=== PATIENT | female | born 1955 | race Caucasian/White ===

== ENCOUNTER 2024-04-19 06:55 | Day surgery (SDC) | payer BC, MEDICARE ==
[2024-04-19] MEDS ORDERED: Ondansetron 4 MG/2 ML SDV IVPUSH ONE (06:56)
[2024-04-19] MEDS ORDERED: Propofol 200 MG/20 ML SDV IV ONE (06:56)
[2024-04-19] MEDS ORDERED: fentaNYL 100 MCG/2 ML SDV IV ONE (06:56)
[2024-04-19] MEDS ORDERED: Sodium Chloride 0.9% 10 ML Syringe FLUSH PRN (07:00)
[2024-04-19 07:49] VITALS: BP 135/57; PULSE 76
[2024-04-19] MEDS: Lactated Ringers 1,000 ML IV SCH (08:07)
[2024-04-19] MEDS: Simethicone Drops 40 MG/0.6 ML 30 ML Bottle ONE (08:23)
== END 2024-04-19 09:30 | disposition home or self-care (01) ==
LOC: FB.SDS 06:55
PROVIDERS: ATTEND Surgery
DX: D12.6 Benign neoplasm of colon, unspecified (principal); K62.5 Hemorrhage of anus and rectum; I10 Essential (primary) hypertension; E78.5 Hyperlipidemia, unspecified; G47.33 Obstructive sleep apnea (adult) (pediatric); E11.9 Type 2 diabetes mellitus without complications; E66.01 Morbid (severe) obesity due to excess calories; Z80.0 Family history of malignant neoplasm of digestive organs; Z79.899 Other long term (current) drug therapy; Z79.84 Long term (current) use of oral hypoglycemic drugs; Z88.0 Allergy status to penicillin; Z88.8 Allergy status to other drugs, medicaments and biological substances; Z91.09 Other allergy status, other than to drugs and biological substances; Z68.41 Body mass index [BMI] 40.0-44.9, adult
CPT/HCPCS: 00811; 88305; A9270-GY; J2405; J2704; J3010; J7120

== ENCOUNTER 2025-05-19 12:39 | Inpatient (IN) | payer MEDICARE ==
[2025-05-19] MEDS ORDERED: Ketoconazole 2% Crm 30 GM Tube TOP PRN (17:18)
[2025-05-19] MEDS ORDERED: Carboxymethylcellulose Sodium 0.5% Ophth Soln 15 ML Bottle EYEBOTH PRN (17:58)
[2025-05-19] MEDS: Sennosides/Docusate Sodium 50-8.6 MG Tab PO SCH (20:10)
[2025-05-20] MEDS: buPROPion 150 MG Tab.ER PO SCH (08:58)
[2025-05-20] MEDS ORDERED: METFORMIN 750 MG PO SCH (09:00)
[2025-05-24] MEDS: Ondansetron 4 MG Tab.DIS PO PRN (21:44)
[2025-05-25 06:04] VITALS: BP 173/71; PULSE 85
[2025-05-25 09:32] LABS: MEAN PLATELET VOLUME 8.2 fL (7.1-12.4); PLATELET COUNT,PLT 320 x10(3)uL (151-488); RED BLOOD CELL COUNT 4.21 x10(6)uL (3.60-5.20); RED CELL DISTRIBUTION WIDTH 14.3 % (12.3-16.5); WHITE BLOOD CELL COUNT,WBC 20.0 x10-3/uL (3.0-10.3)
[2025-05-25 09:35] LABS: BLOOD UREA NITROGEN,BUN 9 mg/dL (7-18); CARBON DIOXIDE,CO2 27 mmol/L (21-32); CHLORIDE,CL 98 mmol/L (100-110); CREATININE 0.9 mg/dL (0.55-1.02); EST CRCL DRUG DOSING (CG) 55.75 mL/min; ESTIMATED GFR 68 mL/min (>60); GLUCOSE RANDOM 219 mg/dL (80-116); POTASSIUM,K 3.6 mmol/L (3.5-5.3); SODIUM,NA 135 mmol/L (135-145)
[2025-05-25 09:40] LABS: LYMPHOCYTES PERCENT MAN 2 % (13-37); MONOCYTES PERCENT MAN 3 % (4-12); SEG NEUTROPHILS PERCENT MAN 95 % (46-82)
[2025-05-25 09:41] LABS: A/G RATIO 0.7; ALANINE AMINOTRANSFERASE,ALT 27 U/L (12-36); ASPARTATE AMNIOTRANSFERASE,AST 21 IU/L (5-25); BILIRUBIN TOTAL 1.7 mg/dL (0.1-1.3); PROTEIN TOTAL,TP 6.7 g/dL (6.0-8.0)
== END 2025-05-25 11:00 | disposition home or self-care (01) | DRG 948 ==
LOC: FB.MS 14:58
PROVIDERS: ADMIT Internal Medicine; ATTEND Family Medicine
DX: R53.81 Other malaise (principal); Z68.42 Body mass index [BMI] 45.0-49.9, adult; F32.9 Major depressive disorder, single episode, unspecified; E11.9 Type 2 diabetes mellitus without complications; K59.00 Constipation, unspecified; Z96.651 Presence of right artificial knee joint; I10 Essential (primary) hypertension; H26.9 Unspecified cataract; H54.7 Unspecified visual loss; E78.00 Pure hypercholesterolemia, unspecified; G47.00 Insomnia, unspecified; G47.33 Obstructive sleep apnea (adult) (pediatric); F41.1 Generalized anxiety disorder; E66.813 Obesity, class 3; K21.9 Gastro-esophageal reflux disease without esophagitis; M19.90 Unspecified osteoarthritis, unspecified site; F32.A Depression, unspecified; G25.81 Restless legs syndrome; Z90.89 Acquired absence of other organs; Z98.890 Other specified postprocedural states; Z79.899 Other long term (current) drug therapy; Z88.8 Allergy status to other drugs, medicaments and biological substances; Z88.1 Allergy status to other antibiotic agents; Z88.0 Allergy status to penicillin; Z91.048 Other nonmedicinal substance allergy status; Z79.891 Long term (current) use of opiate analgesic; Z79.84 Long term (current) use of oral hypoglycemic drugs; Z79.01 Long term (current) use of anticoagulants; Z79.1 Long term (current) use of non-steroidal anti-inflammatories (NSAID); Z98.49 Cataract extraction status, unspecified eye; Z90.710 Acquired absence of both cervix and uterus
CPT/HCPCS: 36415; 80053; 82947; 85025; 97110-GP; 97116-GP; 97161-GP; 97165-GO; 97530-GO; 97530-GP; 97535-GO; 99305; 99316; A9270-GY; Q0162

== ENCOUNTER 2025-05-28 10:48 | Emergency (ER) | payer MEDICARE ==
[2025-05-28 11:26] LABS: MEAN PLATELET VOLUME 8.2 fL (7.1-12.4); PLATELET COUNT,PLT 304 x10(3)uL (151-488); RED BLOOD CELL COUNT 4.23 x10(6)uL (3.60-5.20); RED CELL DISTRIBUTION WIDTH 14.7 % (12.3-16.5); WHITE BLOOD CELL COUNT,WBC 11.6 x10-3/uL (3.0-10.3)
[2025-05-28 11:32] LABS: BLOOD UREA NITROGEN,BUN 9 mg/dL (7-18); CARBON DIOXIDE,CO2 28 mmol/L (21-32); CHLORIDE,CL 97 mmol/L (100-110); CREATININE 1.2 mg/dL (0.55-1.02); ESTIMATED GFR 48 mL/min (>60); GLUCOSE RANDOM 207 mg/dL (80-116); POTASSIUM,K 3.4 mmol/L (3.5-5.3); SODIUM,NA 136 mmol/L (135-145)
[2025-05-28 11:34] LABS: INR 1.03 (1.00-1.24)
[2025-05-28 11:36] LABS: LYMPHOCYTES PERCENT MAN 3 % (13-37); MONOCYTES PERCENT MAN 4 % (4-12); PTT,PARTIAL THROMBOPLSTIN TIME 29.8 SECONDS (24.4-33.2); SEG NEUTROPHILS PERCENT MAN 93 % (46-82)
[2025-05-28 11:38] LABS: A/G RATIO 0.5; ALANINE AMINOTRANSFERASE,ALT 80 U/L (12-36); ASPARTATE AMNIOTRANSFERASE,AST 119 IU/L (5-25); BILIRUBIN TOTAL 2.8 mg/dL (0.1-1.3); PROTEIN TOTAL,TP 7.1 g/dL (6.0-8.0)
[2025-05-28] MEDS: Iopamidol 755 Mg/ML 100 ML Bottle IV SCH (13:22)
[2025-05-28 14:50] LABS: GLUCOSE,URINE NORMAL (NORMAL); OCCULT BLOOD,URINE LARGE (NEGATIVE)
[2025-05-28 14:52] LABS: APPEARANCE,URINE CLOUDY (CLEAR)
[2025-05-28 15:01] LABS: SQUAMOUS EPITHELIAL CELLS,UR FEW (NS,R,O)
[2025-05-28] MEDS: metroNIDAZOLE/Normal Saline 500 MG in Premix Bag 1 BAG IV ONE (15:32)
[2025-05-28 15:42] VITALS: BP 112/55; PULSE 108
== END 2025-05-28 16:12 | disposition home or self-care (01) ==
LOC: FB.ED 10:48
DX: S00.83XA Contusion of other part of head, initial encounter (principal); M25.561 Pain in right knee; K81.9 Cholecystitis, unspecified; I10 Essential (primary) hypertension; E78.00 Pure hypercholesterolemia, unspecified; K21.9 Gastro-esophageal reflux disease without esophagitis; E11.9 Type 2 diabetes mellitus without complications; E66.9 Obesity, unspecified; Z90.710 Acquired absence of both cervix and uterus; Z79.899 Other long term (current) drug therapy; Z79.01 Long term (current) use of anticoagulants; Z79.84 Long term (current) use of oral hypoglycemic drugs; Z88.0 Allergy status to penicillin; Z88.1 Allergy status to other antibiotic agents; Z88.8 Allergy status to other drugs, medicaments and biological substances; Z88.6 Allergy status to analgesic agent; Z91.048 Other nonmedicinal substance allergy status; W01.0XXA Fall on same level from slipping, tripping and stumbling without subsequent striking against object, initial encounter; Y92.009 Unspecified place in unspecified non-institutional (private) residence as the place of occurrence of the external cause
CPT/HCPCS: 36415; 70450; 72125; 74177; 80053; 80143; 81001; 83690; 84484; 85025; 85610; 85730; 93005; 96361; 96365; 96375; 99284; A9270; J0696; J7030; Q9967; J1836